=== PATIENT | male | born 1940 | race Caucasian/White ===

== ENCOUNTER 2017-11-01 14:12 | Inpatient (IN) | payer MEDICARE ==
[~2017-11-01] VITALS: Ht 167.6 cm; Wt 57.4 kg
[2017-11-01] MEDS ORDERED: SODIUM CHLORIDE FLUSH 10ML SYR IVF ONE ×2 (15:00→15:30)
[2017-11-01 15:13] LABS: MEAN CORPUSCULAR HEMOGLOBIN 27.7 pg (27.5-34.5); MEAN CORPUSCULAR HGB CONC 34.1 g/dL (33.2-36.2); MEAN CORPUSCULAR VOLUME 81.2 fL (81-97); MEAN PLATELET VOLUME 8.7 fL (7.4-10.4); PLATELET COUNT 197 x10^3/uL (130-400); RED BLOOD COUNT 4.51 x10^6/uL (4.38-5.82); RED CELL DISTRIBUTION WIDTH 16.8 % (9.4-14.8)
[2017-11-01 15:22] LABS: ALBUMIN 1.9 g/dL (3.4-5.0); ANION GAP 8 mmol/L (5-15); CALCIUM 8.2 mg/dL (8.5-10.1); CHLORIDE 97 mmol/L (98-107)
[2017-11-01] MEDS ORDERED: METO50TA82 PO (15:23)
[2017-11-01] MEDS ORDERED: ATOR-2 PO (15:23)
[2017-11-01] MEDS ORDERED: AMLO10TA6 PO (15:23)
[2017-11-01] MEDS ORDERED: ASPI325T17 PO (15:23)
[2017-11-01 15:26] LABS: ALANINE AMINOTRANSFERASE 164 U/L (12-78); ALKALINE PHOSPHATASE 114 U/L (45-117); BILIRUBIN,TOTAL 1.2 mg/dL (0.2-1.0); CREATININE 1.55 mg/dL (0.7-1.3); TOTAL PROTEIN 6.4 g/dL (6.4-8.2)
[2017-11-01 15:28] LABS: MD YES
[2017-11-01 15:29] LABS: INTERNATIONAL NORMALIZED RATIO 1.02 (0.93-1.1); PROTHROMBIN TIME 10.6 Seconds (9.6-11.5)
[2017-11-01] MEDS ORDERED: CEFTRIAXONE 1,000 MG in SODIUM CHLORIDE 0.9% 50 ML IVPB ONE (15:30)
[2017-11-01] MEDS ORDERED: AZITHROMYCIN 500 MG in SODIUM CHLORIDE 0.9% 250 ML IV ONE (15:30)
[2017-11-01] MEDS ORDERED: SODIUM CHLORIDE 0.9% 1,000ML IVBOLUS ONE (15:30)
[2017-11-01 15:40] LABS: BAND#(MANUAL) 0.44 x10^3/uL; BANDS%(MANUAL) 4 % (0-7); METAMYELOCYTES# (MANUAL) 0.11 x10^3/uL (0-0); METAMYELOCYTES% (MANUAL) 1 % (0-1); MONOS#(MANUAL) 0.11 x10^3/uL (0.3-2.7); MONOS% (MANUAL) 1 % (2-9)
[2017-11-01 15:41] LABS: LYMPH#(MANUAL) 0.22 x10^3/uL (1-3.4); LYMPHS% (MANUAL) 2 % (22-44); SEG#(MANUAL) 10.21 x10^3/uL (1.8-6.8); SEGS% (MANUAL) 92 % (42-75)
[2017-11-01 15:42] LABS: ACANTHOCYTES 1+; OVALOCYTES 1+
[2017-11-01 15:43] LABS: <PLATELET ESTIMATE> ADEQUATE; <PLT MORPHOLOGY> NORMAL PLT MORPH
[2017-11-01] MEDS ORDERED: CEFTRIAXONE PMX 1GM/50ML 50 ML ONE (15:53)
[2017-11-01 16:14] LABS: MICROSCOPIC INDICATED
[2017-11-01 16:59] LABS: CULTURE INDICATED? YES
[2017-11-01] MEDS ORDERED: HYDROcodone/APAP 5/325 TABLET PO PRN (17:30)
[2017-11-01] MEDS ORDERED: GUAIFENESIN/COD200MG-20MG/10ML LIQUID PO PRN (17:30)
[2017-11-01] MEDS ORDERED: ACETAMINOPHEN 325 MG TABLET PO PRN (17:30)
[2017-11-01] MEDS ORDERED: ONDANSETRON 2MG/ML, 2ML IVPush PRN (17:30)
[2017-11-01] MEDS ORDERED: DOCUSATE 100 MG CAPSULE PO PRN (17:30)
[2017-11-01] MEDS ORDERED: morphine SULFATE 10 MG/ML, 1ML IVPush PRN (17:30)
[2017-11-01] MEDS ORDERED: POLYETHYLENE GLYCOL 17 GM PACKET PO PRN (17:30)
[2017-11-01] MEDS: CEFTRIAXONE PMX 1GM/50ML 50 ML IV SCH (17:52)
[2017-11-01] MEDS: NS + 20MEQ KCL 1,000 ML IV SCH (18:32)
[2017-11-01] MEDS: AZITHROMYCIN 500 MG in SODIUM CHLORIDE 0.9% 250 ML IV SCH (18:32)
[2017-11-01] MEDS: ENOXAPARIN 40 MG/0.4 ML SQ SCH (18:36)
[2017-11-01 20:00] VITALS: BP 122/56
[2017-11-01] MEDS: METOPROLOL TARTRATE 50 MG TABLET PO SCH (22:23)
[2017-11-01] MEDS: FAMOTIDINE 20 MG TABLET PO SCH (22:23)
[2017-11-01] MEDS: ATORVASTATIN 80 MG TABLET PO SCH (22:23)
[2017-11-02] MEDS: NS + 20MEQ KCL 1,000 ML IV SCH (01:07)
[2017-11-02 02:52] VITALS: BP 111/47
[2017-11-02 05:25] LABS: BASOPHILS % (AUTO) 0 % (0-1); EOSINOPHILS # (AUTO) 0.17 x10^3/uL (0-0.4); EOSINOPHILS % (AUTO) 2 % (1-7); LYMPHOCYTES # (AUTO) 0.33 x10^3/uL (1-3.4); LYMPHOCYTES % (AUTO) 4 % (22-44); MD NO; MEAN CORPUSCULAR HEMOGLOBIN 27.6 pg (27.5-34.5); MEAN PLATELET VOLUME 8.6 fL (7.4-10.4); MONOCYTES # (AUTO) 0.25 x10^3/uL (0.2-0.8); MONOCYTES % (AUTO) 3 % (2-9); NEUTROPHILS % (AUTO) 91 % (42-75); PLATELET COUNT 168 x10^3/uL (130-400); RED BLOOD COUNT 3.61 x10^6/uL (4.38-5.82)
[2017-11-02 05:32] LABS: ANION GAP 9 mmol/L (5-15); CALCIUM 7.5 mg/dL (8.5-10.1); CHLORIDE 104 mmol/L (98-107)
[2017-11-02 05:33] LABS: CREATININE 1.52 mg/dL (0.7-1.3)
[2017-11-02 06:53] VITALS: BP 120/55
[2017-11-02] MEDS: ASPIRIN 325 MG TABLET PO SCH (08:35)
[2017-11-02] MEDS: AMLODIPINE 10 MG TAB PO SCH (08:35)
[2017-11-02] MEDS: FAMOTIDINE 20 MG TABLET PO SCH ×2 (08:35→20:54)
[2017-11-02] MEDS: METOPROLOL TARTRATE 50 MG TABLET PO SCH ×2 (08:35→20:54)
[2017-11-02] MEDS: SENNA/DOCUSATE TABLET PO SCH (08:36)
[2017-11-02 12:48] VITALS: BP 115/41
[2017-11-02] MEDS ORDERED: NS + 20MEQ KCL 1,000 ML IV SCH (14:00)
[2017-11-02] MEDS: CEFTRIAXONE PMX 1GM/50ML 50 ML IV SCH (16:39)
[2017-11-02] MEDS: AZITHROMYCIN 500 MG in SODIUM CHLORIDE 0.9% 250 ML IV SCH (18:03)
[2017-11-02] MEDS: ENOXAPARIN 40 MG/0.4 ML SQ SCH (18:05)
[2017-11-02 19:47] VITALS: BP 119/59
[2017-11-02] MEDS: ATORVASTATIN 80 MG TABLET PO SCH (20:54)
[2017-11-03 02:20] VITALS: BP 113/59
[2017-11-03 08:20] VITALS: BP 121/63
[2017-11-03 08:20] LABS: ANION GAP 10 mmol/L (5-15); CALCIUM 7.5 mg/dL (8.5-10.1); CHLORIDE 108 mmol/L (98-107); CREATININE 1.25 mg/dL (0.7-1.3)
[2017-11-03 08:53] LABS: MEAN CORPUSCULAR HEMOGLOBIN 27.4 pg (27.5-34.5); MEAN CORPUSCULAR HGB CONC 33.7 g/dL (33.2-36.2); MEAN CORPUSCULAR VOLUME 81.4 fL (81-97); RED BLOOD COUNT 3.73 x10^6/uL (4.38-5.82); RED CELL DISTRIBUTION WIDTH 17.2 % (9.4-14.8)
[2017-11-03 08:54] LABS: BASOPHILS % (AUTO) 0 % (0-1); EOSINOPHILS # (AUTO) 0.03 x10^3/uL (0-0.4); EOSINOPHILS % (AUTO) 0 % (1-7); LYMPHOCYTES # (AUTO) 0.19 x10^3/uL (1-3.4); LYMPHOCYTES % (AUTO) 2 % (22-44); MD SCAN; MEAN PLATELET VOLUME 8.4 fL (7.4-10.4); MONOCYTES % (AUTO) 4 % (2-9); NEUTROPHILS # (AUTO) 8.11 x10^3/uL (1.8-6.8); NEUTROPHILS % (AUTO) 94 % (42-75); PLATELET COUNT 229 x10^3/uL (130-400)
[2017-11-03] MEDS: ASPIRIN 325 MG TABLET PO SCH (09:41)
[2017-11-03] MEDS: AMLODIPINE 10 MG TAB PO SCH (09:41)
[2017-11-03] MEDS: SENNA/DOCUSATE TABLET PO SCH (09:41)
[2017-11-03 09:42] LABS: ALBUMIN 1.6 g/dL (3.4-5.0); BILIRUBIN, DIRECT 0.3 mg/dL (0.1-0.2)
[2017-11-03] MEDS: METOPROLOL TARTRATE 50 MG TABLET PO SCH ×2 (09:42→21:32)
[2017-11-03 09:44] LABS: BILIRUBIN,INDIRECT 0.3 mg/dL (0.0-2.0); BILIRUBIN,TOTAL 0.6 mg/dL (0.2-1.0); TOTAL PROTEIN 5.3 g/dL (6.4-8.2)
[2017-11-03 12:53] VITALS: BP 121/52
[2017-11-03] MEDS: ENOXAPARIN 40 MG/0.4 ML SQ SCH (17:16)
[2017-11-03] MEDS: CEFTRIAXONE PMX 1GM/50ML 50 ML IV SCH (17:16)
[2017-11-03] MEDS: AZITHROMYCIN 500 MG in SODIUM CHLORIDE 0.9% 250 ML IV SCH (18:00)
[2017-11-03 21:09] VITALS: BP 114/58
[2017-11-03] MEDS: ATORVASTATIN 80 MG TABLET PO SCH (21:32)
[2017-11-03] MEDS: FAMOTIDINE 20 MG TABLET PO SCH (21:32)
[2017-11-04 00:32] VITALS: BP 127/62
[2017-11-04 08:00] VITALS: BP 144/52
[2017-11-04] MEDS: SENNA/DOCUSATE TABLET PO SCH (08:44)
[2017-11-04] MEDS: AMLODIPINE 10 MG TAB PO SCH (08:45)
[2017-11-04] MEDS: METOPROLOL TARTRATE 50 MG TABLET PO SCH ×2 (08:45→21:46)
[2017-11-04] MEDS: ASPIRIN 325 MG TABLET PO SCH (08:45)
[2017-11-04 12:34] VITALS: BP 123/45
[2017-11-04] MEDS: CEFTRIAXONE PMX 1GM/50ML 50 ML IV SCH (17:24)
[2017-11-04] MEDS: ENOXAPARIN 40 MG/0.4 ML SQ SCH (17:24)
[2017-11-04] MEDS: AZITHROMYCIN 500 MG in SODIUM CHLORIDE 0.9% 250 ML IV SCH (18:18)
[2017-11-04 20:11] VITALS: BP 120/64
[2017-11-04] MEDS: ATORVASTATIN 80 MG TABLET PO SCH (21:46)
[2017-11-04] MEDS: FAMOTIDINE 20 MG TABLET PO SCH (21:46)
[2017-11-05 02:20] VITALS: BP 115/69
[2017-11-05 07:31] VITALS: BP 133/44
[2017-11-05] MEDS ORDERED: AMOX1TAB64 PO (08:48)
[2017-11-05] MEDS: SENNA/DOCUSATE TABLET PO SCH (08:52)
[2017-11-05] MEDS: ASPIRIN 325 MG TABLET PO SCH (08:53)
[2017-11-05] MEDS: METOPROLOL TARTRATE 50 MG TABLET PO SCH (08:53)
[2017-11-05] MEDS: AMLODIPINE 10 MG TAB PO SCH (08:53)
== END 2017-11-05 13:10 | DRG 871 ==
LOC: ED 16:45 → 4NOR 16:46 → SUATTDRO 16:50 → 4NOR 17:45
PROVIDERS: ADMIT Family Medicine; ATTEND Family Medicine
DX: A41.9 Sepsis, unspecified organism (principal); J15.9 Unspecified bacterial pneumonia; E43 Unspecified severe protein-calorie malnutrition; I69.354 Hemiplegia and hemiparesis following cerebral infarction affecting left non-dominant side; Z68.20 Body mass index [BMI] 20.0-20.9, adult; R27.0 Ataxia, unspecified; I10 Essential (primary) hypertension; E78.5 Hyperlipidemia, unspecified; N28.9 Disorder of kidney and ureter, unspecified; N30.90 Cystitis, unspecified without hematuria; Z79.82 Long term (current) use of aspirin; Z83.3 Family history of diabetes mellitus; Z87.891 Personal history of nicotine dependence
CPT/HCPCS: 36415; 70450; 70551; 71045; 74230; 76700; 80048; 80053; 80074; 80076; 81001; 83605; 83735; 84145; 85025; 85610; 85730; 87040; 87086; 93005; 96365; 96366; 99285; G0378; J0456; J0696; J1650; J3480; 92523-GN; J7030; J7050